=== PATIENT | female | born 1995 | race Caucasian/White ===

== ENCOUNTER → 2016-07-15 | Outpatient (CLI) | payer OTHER ==
[~2016-07-15] MED LIST: OPTIRAY 320 IV PRN
--- NOTE | 2016-07-15 14:44 | DIAGNOSTIC IMAGING REPORT ---
CT OF THE ABDOMEN AND PELVIS WITH AND WITHOUT CONTRAST CLINICAL HISTORY: Left flank pain and leukocytosis. COMPARISON STUDY: None. TECHNIQUE: Axial images of the abdomen and pelvis were obtained before and after intravenous administration of 93 cc of Optiray 320 IV. Oral contrast was administered. CT DOSE: 521.64 mGycm FINDINGS: Visualized portions of the lower chest demonstrate minimal tree-in-bud opacities within the left lower lobe. No renal, ureteral or bladder calculi are identified. There is no hydronephrosis. There are multiple hypoenhancing foci within the mid to upper pole of the left kidney. Right kidney is unremarkable. The liver, spleen, adrenal glands and pancreas are normal. The caliber and wall thickness of small and large bowel are normal. There is an intrauterine device. There is no lymphadenopathy or ascites. Skeletal structures are unremarkable. IMPRESSION: 1. Multiple hypoenhancing foci within the mid to upper pole of the left kidney suggestive of pyelonephritis given the clinical history. No renal abscess. 2. No urinary calculi or hydronephrosis. 3. Minimal tree-in-bud opacities within the left lower lobe which suggests a mild infectious bronchiolitis. Electronically signed by: Rico Ramirez M.D. 07/15/2016 2:42 PM
== END | disposition home or self-care (01) ==
LOC: C.CTS 13:27
PROVIDERS: ATTEND Family Medicine
DX: D72.829 Elevated white blood cell count, unspecified (principal); R10.9 Unspecified abdominal pain; R63.4 Abnormal weight loss; R63.0 Anorexia